=== PATIENT | female | born 1955 | race Caucasian/White ===

== ENCOUNTER → 2018-07-21 | Outpatient (CLI) | payer OTHER ==
[~2018-07-21] MED LIST: BENADRYL25 M1 PO; BUPROPION HCL150 MG PO; CRANBERRY500 M1 PO; IBUPROFEN400 MG PO; LINZESS PO; LOSARTAN POTAS100 MG PO; NUVIGIL250 MG PO; SYNTHROID50 MCG PO; TECFIDERA PO; TRAZODONE HCL100 MG PO; VITAMIN B COMP1 EAC4 PO; VIVELLE-DOT1 EAC2 TOP; [UNRECOGNIZED DRUG - OTHER] PO
--- NOTE | 2018-07-26 08:35 | Diagnostic Imaging Report ---
#[id number] - MGSCRBIL #BILATERAL DIGITAL SCREENING MAMMOGRAM WITH CAD: 07/21/2018 CLINICAL: Routine screening. Comparison is made to exams dated: 12/31/2012 mammogram - [facility], 08/28/2008 mammogram and 07/05/2007 mammogram - [facility]. Current study contains 4 films. The tissue of both breasts is heterogeneously dense. This may lower the sensitivity of mammography. Current study was also evaluated with a Computer Aided Detection (CAD) system. There is a mass in the left breast at 1 o'clock posterior depth not seen on the most recent prior study. Benign calcifications in both breasts are present. No other significant masses, calcifications, or other findings are seen in either breast. IMPRESSION: INCOMPLETE: NEEDS ADDITIONAL IMAGING EVALUATION The mass in the left breast resembles a lymph node but is indeterminate and apparently new. Additional views with possible ultrasound are recommended. The patient will be contacted by the Mammography Department to schedule this appointment. Brendan Biggs Jr., D.O. cw/:07/23/2018 13:41:01 Human Resource Manager: Madonna VILLATORO(Evangelina)(M), [facility] letter sent: Additional Imaging Needed Mammogram BI-RADS: 0 Indeterminate
== END ==
LOC: MAMMO 08:43
PROVIDERS: ATTEND Family Medicine
DX: Z12.31 Encounter for screening mammogram for malignant neoplasm of breast (principal)
CPT/HCPCS: 77067

== ENCOUNTER → 2018-08-16 | Outpatient (CLI) | payer OTHER ==
--- NOTE | 2018-08-17 08:28 | Diagnostic Imaging Report ---
#[id number] - USBRELIMLT ULTRASOUND OF THE LEFT BREAST : 08/16/2018 Comparison is made to exams dated: 08/16/2018 mammogram and 07/21/2018 mammogram - [facility]. Color flow and real-time ultrasound were performed on the left breast with scanning from 12-6 o'clock. -At 12 o'clock 1 cm from the nipple is a 3 x 2 x 4 mm cyst -At 2 o'clock 1 cm from the nipple is a 1 x 2 x 2 mm cyst -At 3 o'clock 1 cm from the nipple is a 5 x 2 x 5 mm cyst -At 3 o'clock 1 cm from the nipple is a 3 x 2 x 3 mm cyst IMPRESSION: BENIGN There is no sonographic evidence of malignancy. A 1 year screening mammogram is recommended. Brendan Biggs Jr., D.O. cw/:08/16/2018 16:36:12 Orthopaedic General: BOBBY BRUCE RDME, [facility] letter sent: Normal Exam Ultrasound BI-RADS: 2 Benign
--- NOTE | 2018-08-17 08:28 | Diagnostic Imaging Report ---
#[id number] - MGDXLT #UNILATERAL LEFT DIGITAL DIAGNOSTIC MAMMOGRAM WITH SPOT COMPRESSION: 08/16/2018 Comparison is made to exams dated: 07/21/2018 mammogram and 12/31/2012 mammogram - [facility]. Current study contains 3 films. The tissue of the left breast is heterogeneously dense. This may lower the sensitivity of mammography. There is a small mass in the left breast at 1 o'clock middle depth. No other significant masses or calcifications are seen in the breast. IMPRESSION: INCOMPLETE: NEEDS ADDITIONAL IMAGING EVALUATION The mass in the left breast needs additional evaluation. An ultrasound is recommended and will be performed today. Brendan Biggs Jr., D.O. cw/:08/16/2018 14:15:10 Diesel Truck Technician: Madonna VILLATORO(Evangelina)(M), [facility] letter sent: Additional Imaging Needed Mammogram BI-RADS: 0 Indeterminate
== END ==
LOC: MAMMO 08:37
PROVIDERS: ATTEND Family Medicine
DX: R92.8 Other abnormal and inconclusive findings on diagnostic imaging of breast (principal)

== ENCOUNTER → 2018-12-30 | Outpatient (CLI) | payer OTHER ==
--- NOTE | 2018-12-30 16:52 | Diagnostic Imaging Report ---
Thyroid ultrasound History: Sensation of lump in throat. Comparison: None Findings: The thyroid echotexture is normal. Vascularity is normal. The right lobe measures 4.0 x 1.8 x 1.2 cm. The left lobe measures 3.6 x 1.0 x 1.3 cm. The isthmus measures 0.1 cm. In the right mid pole thyroid, there is a 1.4 x 0.8 x 0.6 cm solid hypoechoic nodule which is taller than wide with irregular margins and punctate echogenic foci. There is associated doppler flow. Total 12 points, TR 5. Lymph Nodes: No cervical lymph nodes are identified. Parathyroids: Not visualized. IMPRESSION: A 1.4 cm highly suspicious nodule in the right mid pole thyroid (TR 5). Ultrasound guided FNA is recommended. ACR glossary of thyroid rads TI-RADS 1: No focal lesion. TI-RADS 2: Not suspicious. TI-RADS 3: Mildly suspicious (recommend FNA is greater than or equal to 2.5 cm; follow-up at 1, 3, and 5 years if greater than or equal to 1.5 cm) TI-RADS 4: Moderately Suspicious (recommend FNA is greater than or equal to 1.5 cm; follow-up at 1, 2, 3, and 5 years) TI-RADS 5: Highly suspicious (recommend FNA is greater than or equal to 10 mm) TI-RADS 6: Biopsy-proven malignancy Signed by: Dr. Radha Montez MD on 12/30/2018 4:49 PM
== END ==
LOC: US 14:26
PROVIDERS: ATTEND Family Medicine
DX: R22.1 Localized swelling, mass and lump, neck (principal)
CPT/HCPCS: 76536

== ENCOUNTER → 2019-01-12 | Outpatient (CLI) | payer OTHER ==
--- NOTE | 2019-01-13 17:20 | Diagnostic Imaging Report ---
Ultrasound-guided right thyroid nodule fine needle aspiration Pre-Procedure Diagnosis: Right sided thyroid nodule Post-procedure Diagnosis: Right sided thyroid nodule Senior Ssis Developer: Radha Montez MD Sedation: 1% lidocaine local anesthesia. Estimate blood loss: None. Complications: None Implants/Grafts: None Specimen: 25-gauge fine needle aspiration x 4. Procedure/Findings: Informed consent was obtained and the patient positioned supine in the ultrasound suite. A timeout was performed, followed by preliminary ultrasound of the right neck demonstrating a right sided thyroid nodule, corresponding to the nodule noted on 12/30/2018. A path to the lesion was identified. The neck was prepped and draped in standard sterile fashion. Local anesthesia with 1% subcutaneous lidocaine was administered. Using real-time ultrasound guidance, a 25 gauge needle was advanced into the nodule. A total of four 25-gauge fine needle aspirates were obtained with ultrasound guidance and were submitted to the Pathologist who was present on site for review who confirmed satisfactory specimen. Post procedural ultrasound demonstrated no immediate complication. At the end of the procedure a sterile dressing was applied. Impression: Ultrasound guided fine needle aspiration of right sided thyroid nodule as above. Signed by: Dr. Radha Montez MD on 01/13/2019 5:17 PM
== END ==
LOC: US 12:00
PROVIDERS: ATTEND Family Medicine
DX: R93.89 Abnormal findings on diagnostic imaging of other specified body structures (principal)
CPT/HCPCS: 10005; 88112; 88172; 88173

== ENCOUNTER → 2019-05-13 | Outpatient (CLI) | payer OTHER ==
[~2019-05-13] MED LIST changes: +GADOBENATE DIMEGLUMINE 1 ML IV ONE
[2019-05-13 09:04] LABS: BLOOD UREA NITROGEN 17 mg/dL (7-26); BUN/CREATININE RATIO 22 (6-25); CREATININE, SERUM 0.79 mg/dL (0.57-1.11); EST GLOMERULAR FILTRATION RATE > 60 ML/MIN (60-)
--- NOTE | 2019-05-13 13:30 | Diagnostic Imaging Report ---
EXAMINATION: MRI of the brain without and with contrast . HISTORY: Multiple sclerosis follow-up. COMPARISON: Brain MRI 04/28/2014 TECHNIQUE: Precontrast axial DWI, T1, T2, T2 FLAIR, Volumetric T2 FLAIR FS reconstructed in the axial, sagittal and coronal planes. Postcontrast volumetric T1 FS obtained in the coronal plane reconstructed in the axial and sagittal planes Intravenous contrast: 10 mL of MultiHance FINDINGS: T2 lesions: There is a couple of new T2 lesions in the right juxtacortical cingulate gyrus and adjacent to a previously seen dominant right frontal callososeptal lesion. Otherwise unchanged approximately 20-30 T2 lesions located in the corpus callosum, callososeptal interface, periventricular, stanford radiata and centrum semiovale. Subtle ventral lesion in the right pontomedullary junction was probably present on prior study. Otherwise no discrete infratentorial lesions. No new T2 lesions. T1 lesions: Unchanged a few slightly T1 hypointense periventricular lesions. Enhancing lesions: None Corpus callosum volume: Normal. Brain volume: Normal for age. Other: No mass, hydrocephalus, hemorrhage, acute or chronic infarcts IMPRESSION: A couple of new right supratentorial white matter demyelinating T2 lesions. Otherwise no interval change compared to MRI of 04/28/2014. No new T1 or enhancing MS lesions. Signed by: Dr. Garima Blue M.D. on 05/13/2019 1:26 PM
--- NOTE | 2019-05-13 14:04 | Diagnostic Imaging Report ---
EXAMINATION: MRI of the cervical spine without and with contrast. HISTORY: Multiple sclerosis follow-up COMPARISON: Cervical spine MRI of 03/06/2008 TECHNIQUE: Pre-contrast sagittal T1, T2, STIR; axial T1, T2.. Post contrast axial and sagittal T1. Intravenous Contrast: 10 mL MultiHance. FINDINGS: Spinal Cord: Spinal cord size: Normal T1 lesions: None Enhancing lesions: None T2 lesions: Unchanged single T2 lesion on the right lateral spinal cord at the C1-C2 level and questionable left lateral lesion at this same level, only seen on sagittal STIR and also probably present on prior study. No new cervical spinal cord T2 lesions. Others: Vertebrae: Normal alignment, height, signal intensity. Discs: Worsening, now severe degenerative foraminal stenosis on the left at C5-C6 and C6-C7 due to disc osteophyte, uncovertebral and facet arthrosis, some degree of displacement of the corresponding exiting left C6 and C7 nerve roots respectively cannot be excluded in the appropriate clinical setting. Craniocervical junction: Normal. IMPRESSION: 1. Unchanged single cervical spinal cord demyelinating T2 lesion. No new T1, T2 or enhancing MS plaques. 2. Severe degenerative foraminal stenosis on the left at C5-C6 and C6-7. Signed by: Dr. Garima Blue M.D. on 05/13/2019 2:01 PM
--- NOTE | 2019-05-16 18:29 | Diagnostic Imaging Report ---
EXAMINATION: MRI of the thoracic spine without and with contrast. HISTORY: Multiple sclerosis COMPARISON: None available TECHNIQUE: Pre-contrast sagittal T1, T2, STIR; axial T1, T2.. Post contrast axial and sagittal T1. Intravenous Contrast: 10 mL of MultiHance. FINDINGS: Spinal Cord: Spinal cord size: Normal T1 lesions: None Enhancing lesions: None T2 lesions: None Others: Vertebrae: Normal alignment, height, signal intensity. Discs: Normal Craniocervical junction: Normal. IMPRESSION: Normal thoracic spinal cord, particularly no demyelinating lesions are seen. Signed by: Dr. Garima Blue M.D. on 05/16/2019 6:25 PM
== END ==
LOC: MRI 08:27
PROVIDERS: ATTEND Psychiatry & Neurology Clinical Neurophysiology
DX: G35 Multiple sclerosis (principal)
CPT/HCPCS: 36415; 70553; 72156; 72157; 82565; 84520; A9577

== ENCOUNTER → 2020-05-23 | Outpatient (CLI) | payer OTHER ==
[2020-05-23 13:39] LABS: BLOOD UREA NITROGEN 19 mg/dL (7-26); BUN/CREATININE RATIO 25 (6-25); CREATININE, SERUM 0.77 mg/dL (0.57-1.11); EST GLOMERULAR FILTRATION RATE > 60 ML/MIN (60-)
--- NOTE | 2020-05-23 16:21 | Diagnostic Imaging Report ---
EXAMINATION: MRI of the brain without and with contrast . HISTORY: Multiple sclerosis follow-up. COMPARISON: Brain MRI 05/13/19 TECHNIQUE: Precontrast axial DWI, T1, T2, T2 FLAIR, Volumetric T2 FLAIR FS reconstructed in the axial, sagittal and coronal planes. Postcontrast volumetric T1 FS obtained in the coronal plane reconstructed in the axial and sagittal planes Intravenous contrast: 10 mL of MultiHance FINDINGS: T2 lesions: Unchanged approximately 20-32 T2 lesions located in the corpus callosum, callososeptal interface, periventricular, stanford radiata and centrum semiovale. Subtle ventral lesion in the right pontomedullary junction is also unchanged. No discrete infratentorial lesions. No new T2 lesions. T1 lesions: Unchanged a few slightly T1 hypointense periventricular lesions. Enhancing lesions: None Corpus callosum volume: Normal. Brain volume: Normal for age. Other: No mass, hydrocephalus, hemorrhage, acute or chronic infarcts IMPRESSION: Unchanged mostly supratentorial demyelinating T2 lesions compared to MRI of 05/13/19. No new T2 or enhancing MS lesions. Signed by: Dr. Garima Blue M.D. on 05/23/2020 4:18 PM
--- NOTE | 2020-05-23 16:29 | Diagnostic Imaging Report ---
EXAMINATION: MRI of the cervical spine without and with contrast. HISTORY: Multiple sclerosis follow-up COMPARISON: Cervical spine MRI of 05/13/19 TECHNIQUE: Pre-contrast sagittal T1, T2, STIR; axial T1, T2.. Post contrast axial and sagittal T1. Intravenous Contrast: 10 mL MultiHance. Image quality: Motion artifact limits the evaluation of the postcontrast images. FINDINGS: Spinal Cord: Spinal cord size: Normal T1 lesions: None Enhancing lesions: None T2 lesions: Unchanged single T2 lesion on the right lateral spinal cord at the C1-C2 level and smaller left lateral lesion at this same level. No new cervical spinal cord T2 lesions. Others: Vertebrae: Normal alignment, height, signal intensity. Discs: Persistent severe degenerative foraminal stenosis on the left at C5-C6 and C6-C7 due to disc osteophyte, uncovertebral and facet arthrosis, some degree of displacement of the corresponding exiting left C6 and C7 nerve roots respectively cannot be excluded in the appropriate clinical setting. Craniocervical junction: Normal. IMPRESSION: 1. Unchanged cervical spinal cord demyelinating T2 lesions compared to MRI of 05/13/19. No new T1, T2 or enhancing MS plaques. 2. Severe degenerative foraminal stenosis on the left at C5-C6 and C6-7, unchanged. Signed by: Dr. Garima Blue M.D. on 05/23/2020 4:26 PM
--- NOTE | 2020-05-23 16:36 | Diagnostic Imaging Report ---
EXAMINATION: MRI of the thoracic spine without and with contrast. HISTORY: Multiple sclerosis COMPARISON: Thoracic spine MRI of 05/16/19 TECHNIQUE: Pre-contrast sagittal T1, T2, STIR; axial T1, T2.. Post contrast axial and sagittal T1. Intravenous Contrast: 10 mL of MultiHance. FINDINGS: Spinal Cord: Spinal cord size: Normal T1 lesions: None Enhancing lesions: None T2 lesions: None Others: Vertebrae: Normal alignment, height, signal intensity. Discs: Normal Craniocervical junction: Normal. IMPRESSION: Normal thoracic spinal cord, particularly no demyelinating lesions, unchanged from MRI of 05/16/19. Signed by: Dr. Garima Blue M.D. on 05/23/2020 4:32 PM
== END ==
LOC: MRI 12:39
PROVIDERS: ATTEND Psychiatry & Neurology Clinical Neurophysiology
DX: G35 Multiple sclerosis (principal)
CPT/HCPCS: 36415; 70553; 72156; 72157; 82565; 84520; A9577

== ENCOUNTER → 2021-07-02 | Outpatient (CLI) | payer MEDICARE ==
[~2021-07-02] MED LIST changes: -GADOBENATE DIMEGLUMINE 1 ML IV ONE
== END ==
LOC: MAMMO 13:36
PROVIDERS: ATTEND Family Medicine
DX: Z12.31 Encounter for screening mammogram for malignant neoplasm of breast (principal)
CPT/HCPCS: 77067

== ENCOUNTER → 2021-09-03 | Outpatient (CLI) | payer MEDICARE, BC | LOC: US 08:45 | DX: E06.3 Autoimmune thyroiditis (principal); E04.1 Nontoxic single thyroid nodule | CPT/HCPCS: 76536 ==

== ENCOUNTER → 2022-02-19 | Outpatient (CLI) | payer MEDICARE, BC | LOC: RAD 10:31 | PROVIDERS: ATTEND Physician Assistant | DX: I87.2 Venous insufficiency (chronic) (peripheral) (principal) | CPT/HCPCS: 93971 ==

== ENCOUNTER → 2022-06-10 | Outpatient (CLI) | payer MEDICARE, BC | LOC: MAMMO 08:37 | PROVIDERS: ATTEND Family Medicine | DX: Z12.31 Encounter for screening mammogram for malignant neoplasm of breast (principal); M85.88 Other specified disorders of bone density and structure, other site | CPT/HCPCS: 77067; 77080 ==

== ENCOUNTER → 2022-08-13 | Outpatient (CLI) | payer MEDICARE, BC ==
[~2022-08-13] MED LIST changes: +GADOBENATE DIMEGLUMINE 1 ML IV ONE
== END ==
LOC: MRI 11:52
PROVIDERS: ATTEND Physician Assistant
DX: G35 Multiple sclerosis (principal)
CPT/HCPCS: 70553; 72156; 72157

== ENCOUNTER → 2022-10-14 | Outpatient (CLI) | payer MEDICARE, BC ==
[~2022-10-14] MED LIST changes: -GADOBENATE DIMEGLUMINE 1 ML IV ONE
== END ==
LOC: US 10:07
PROVIDERS: ATTEND Internal Medicine Endocrinology, Diabetes & Metabolism
DX: E06.3 Autoimmune thyroiditis (principal)
CPT/HCPCS: 76536

== ENCOUNTER → 2024-01-18 | Outpatient (REF) | payer MEDICARE, BC | LOC: CT 11:35 | PROVIDERS: ATTEND Family Medicine | DX: Z12.2 Encounter for screening for malignant neoplasm of respiratory organs (principal); Z87.891 Personal history of nicotine dependence | CPT/HCPCS: 71250 ==

== ENCOUNTER → 2024-07-07 | Outpatient (REF) | payer MEDICARE, BC | LOC: MAMMO 10:15 | PROVIDERS: ATTEND Family Medicine | DX: Z12.31 Encounter for screening mammogram for malignant neoplasm of breast (principal); M85.88 Other specified disorders of bone density and structure, other site; E55.9 Vitamin D deficiency, unspecified; N95.1 Menopausal and female climacteric states | CPT/HCPCS: 77067; 77080 ==

== ENCOUNTER → 2025-07-07 | Outpatient (REF) | payer MEDICARE, BC | LOC: MAMMO 09:41 | PROVIDERS: ATTEND Family Medicine | DX: Z12.31 Encounter for screening mammogram for malignant neoplasm of breast (principal) | CPT/HCPCS: 77067 ==